=== PATIENT | male | born 1985 | race Caucasian/White ===

== ENCOUNTER 2019-08-08 15:30 | Emergency (ER) | payer SELFPAY ==
[2019-08-08 16:21] VITALS: BP 151/88
--- NOTE | 2019-08-08 17:40 | UC ---
Throat Pain/Nasal Levi HPI - HPI Summary HPI Summary: One week hx of sinus pressure, with increased ear pain and decreased hearing x 2 days. No headache or dizziness. Known hyptertension, missed meds this am and is using sudafed, last dose about 6 hours ago. - History of Current Complaint Chief Complaint: UCRespiratory Stated Complaint: SINUS CONGESTION, AND EAR ACHE Time Seen by Provider: 08/08/19 17:31 Hx Obtained From: Patient Onset/Duration: Gradual Onset, Lasting Days Severity: Moderate Pain Intensity: 5 Cough: Nonproductive Associated Signs & Symptoms: Positive: Sinus Discomfort, Nasal Discharge - Epiglottits Risk Factors Epiglottis Risk Factors: Negative - Allergies/Home Medications Allergies/Adverse Reactions: Allergies Allergy/AdvReac Type Severity Reaction Status Date / Time No Known Allergies Allergy Verified 08/08/19 16:21 Home Medications: Home Medications Bp Med* 1 tab PO DAILY 08/08/19 [History Confirmed 08/08/19] Pseudoephedrine TAB* [Sudafed TAB*] 60 mg PO ONCE PRN 08/08/19 [History Confirmed 08/08/19] PMH/Surg Hx/FS Hx/Imm Hx Previously Healthy: Yes Cardiovascular History: Hypertension - Surgical History Surgical History: Yes Surgery Procedure, Year, and Place: appendectomy - Family History Known Family History: Positive: Hypertension - father - Social History Occupation: Employed Full-time Lives: With Family Alcohol Use: Occasionally Substance Use Type: None Smoking Status (MU): Never Smoked Tobacco Review of Systems All Other Systems Reviewed And Are Negative: Yes Constitutional: Positive: Fatigue ENT: Positive: Sore Throat, Ear Ache, Sinus Congestion Respiratory: Positive: Cough. Negative: Shortness Of Breath Cardiovascular: Positive: Other - sometimes forgets to take antihypertensive.. Negative: Palpitations, Chest Pain Genitourinary: Positive: Negative Motor: Positive: Negative Neurovascular: Positive: Negative Musculoskeletal: Positive: Negative Neurological: Positive: Negative Psychological: Positive: Negative Is Patient Immunocompromised?: No Physical Exam Triage Information Reviewed: Yes Appearance: Well-Appearing, Pain Distress - mild Vital Signs: Initial Vital Signs Temp 98.3 F 08/08/19 16:16 Pulse 83 08/08/19 16:16 Resp 18 08/08/19 16:16 BP 151/88 08/08/19 16:16 Pulse Ox 99 08/08/19 16:16 Eyes: Positive: Conjunctiva Clear ENT: Positive: Pharyngeal erythema, TM bulging - on right, with erythema, TM dull - bilaterally., TM red - bilateral, Tonsillar swelling. Negative: Tonsillar exudate Dental Exam: Normal Respiratory: Positive: Lungs clear, Normal breath sounds Cardiovascular: Positive: RRR, No Murmur Musculoskeletal Exam: Normal Neurological Exam: Normal Neurological: Positive: Alert Psychological Exam: Normal Skin Exam: Normal Throat Pain/Nasal Course/Dx - Course Course Of Treatment: augmentin for otitis media; reminded to take antihypertensive regularly. symptomatic tx with flonase and guifensin. - Differential Dx/Diagnosis Provider Diagnosis: Right otitis media Discharge ED - Sign-Out/Discharge Documenting (check all that apply): Patient Departure All imaging exams completed and their final reports reviewed: No Studies - Discharge Plan Condition: Stable Disposition: HOME Prescriptions: Amoxicillin/Clavulanate TAB* [Augmentin TAB 875*] 875 mg PO BID #14 tab Patient Education Materials: Ear Infection (ED) Referrals: Catie Rod MD [Primary Care Provider] - Additional Instructions: Augmentin has been prescribed for treatment of right otitis media (left ear also has signs of infection). Please take the full course of treatment. Over the counter meds which can relieve ear pressure: flonase nose spray 2 sprays to both nostrils once dialy, saline nose spray, and Mucinex 600mg twice daily. Please remember to take your blood pressure medications and avoid sudafed, and ensure repeat blood pressure check in 1 to 2 weeks. - Billing Disposition and Condition Condition: STABLE Disposition: Home
== END 2019-08-08 17:54 | disposition home or self-care (01) ==
LOC: UCEAST 15:30
DX: H66.91 Otitis media, unspecified, right ear (principal); R05 Cough; J02.9 Acute pharyngitis, unspecified; J34.89 Other specified disorders of nose and nasal sinuses; I10 Essential (primary) hypertension
CPT/HCPCS: 99202; G0463